=== PATIENT | male | born 1960 | race Two or more races ===

== ENCOUNTER 2023-04-19 12:44 | Emergency (ER) | payer BC, OTHER ==
[~2023-04-19] VITALS: Ht 172.7 cm; Wt 93.1 kg
[2023-04-19 14:38] LABS: Basophils # (auto) 0 10 ^3/uL (0-0.2); Basophils % (auto) 0.4 % (0.0-2.0); Eosinophils # (auto) 0 10 ^3/uL (0-0.8); Eosinophils % (auto) 0.8 % (0.0-7.0); Hemoglobin 15.3 g/dL (13.5-17.5); Lymphocytes # (auto) 2.4 10 ^3/uL (0.4-5.4); Lymphocytes % (auto) 46.8 % (10.0-50.0); Mean Corpuscular Hemoglobin 29.7 pg (28.0-32.0); Mean Corpuscular Hgb Conc. 31.9 g/dL (32.0-36.0); Mean Corpuscular Volume 93.3 fL (80.0-100.0); Monocytes # (auto) 0.5 10 ^3/uL (0-1.3); Monocytes % (auto) 9.5 % (0.0-12.0); Neutrophils # (auto) 2.2 10 ^3/uL (1.6-8.6); Neutrophils % (auto) 42.5 % (37.0-80.0); Nucleated Red Blood Cells % 0.1 %; Red Blood Cells 5.14 10^6/uL (4.5-5.90); Red Cell Distribution Width 14.1 % (11.8-14.3); White Blood Cell 5.2 10^3/uL (4.4-10.8)
[2023-04-19 14:54] LABS: Alanine Aminotransferase 32 U/L (7-40); Albumin 4.2 g/dL (3.2-4.8); Alkaline Phosphatase 36 U/L (46-116); Anion Gap 6 (5-15); Aspartate Aminotransferase 26 U/L (13-40); BUN/Creatinine Ratio 9.5 (10.0-20.0); Blood Urea Nitrogen 13 mg/dL (9-23); Calcium 9.4 mg/dL (8.7-10.4); Carbon Dioxide 30 mmol/L (20-30); Chloride 105 mmol/L (98-107); Glucose 83 mg/dL (74-106); Lipase 42 U/L (12-53); Potassium 4.2 mmol/L (3.5-5.1); Sodium 141 mmol/L (136-145)
[2023-04-19 14:55] LABS: Bilirubin, Total 0.7 mg/dL (0.2-1.0); Total Protein 7.3 g/dL (5.7-8.2)
[2023-04-19 17:42] LABS: Urine WBC None Seen /hpf (0 - 3)
[2023-04-19 17:59] LABS: Amphetamine Screen, Urine Neg (NEGATIVE); Barbiturate Scree,Urine Neg (NEGATIVE); Benzodiazephine Screen, Urine Neg (NEGATIVE); Cocaine Screen, Urine Neg (NEGATIVE); Opiate Scree,Urine Neg (NEGATIVE)
[2023-04-19 18:00] LABS: Cannabinoid Screen, Urine Neg (NEGATIVE); Phencyclidine Screen, Urine Neg (NEGATIVE)
[2023-04-19 18:12] LABS: Urine Bacteria NONE SEEN /hpf (None Seen); Urine Blood Negative /uL (Negative); Urine Clarity Clear (Clear); Urine Color Colorless (Yellow); Urine Mucus FEW (None Seen); Urine Protein, UAD Negative (Negative); Urine Urobilinogen Normal (Negative); Urine pH 5.5 (5.0-8.0)
[2023-04-19] MEDS ORDERED: DICY10CA PO (18:33)
[2023-04-19 18:41] VITALS: BP 170/101; PULSE 77; RESP 19; TEMP 97.9; O2SAT 97
== END 2023-04-19 18:45 | disposition home or self-care (01) ==
LOC: ER 12:44
DX: R10.13 Epigastric pain (principal); G89.29 Other chronic pain; I10 Essential (primary) hypertension
CPT/HCPCS: 36415; 80053; 80307; 81001; 83690; 85025

== ENCOUNTER 2024-09-14 12:10 | Emergency (ER) | payer OTHER ==
[~2024-09-14 12:10] MED LIST: DICY10CA PO
[2024-09-14] MEDS ORDERED: LIDO5DIS21 TOP (12:38)
[2024-09-14] MEDS ORDERED: IBUP-1455 PO (12:38)
[2024-09-14] MEDS ORDERED: CYCL-839 PO (12:38)
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
[2024-09-14 13:57] VITALS: BP 145/91; PULSE 82; RESP 16; TEMP 98.7; O2SAT 94
== END 2024-09-14 14:01 | disposition home or self-care (01) ==
LOC: ER 12:10
DX: M25.511 Pain in right shoulder (principal); I10 Essential (primary) hypertension; Z79.899 Other long term (current) drug therapy; V43.52XA Car driver injured in collision with other type car in traffic accident, initial encounter; Y93.89 Activity, other specified; Y92.488 Other paved roadways as the place of occurrence of the external cause; Y99.8 Other external cause status